=== PATIENT | male | born 1965 | race Caucasian/White ===

== ENCOUNTER 2019-02-14 18:04 | Outpatient (CLI) | payer OTHER ==
--- NOTE | 2019-02-16 04:52 | MRI Report ---
Reason: LOW BACK PAIN Procedure Date: 02/14/2019 Accession Number: [id number] / [id number] Procedure: MRI - Lumbar Spine W/O CPT Code: Final Report FULL RESULT: EXAM: MRI LUMBAR SPINE WITHOUT CONTRAST EXAM DATE: 02/14/2019 06:56 PM. CLINICAL HISTORY: LOW BACK PAIN. COMPARISON: MRI LUMBAR SPINE 06/03/2009 8:11 AM. TECHNIQUE: Multiplanar, multisequence T1-weighted and fluid-sensitive sequences of the lumbar spine from T12 to S1 without contrast. Other: None. FINDINGS: Spinal Canal: The conus terminates at L1. The conus and visualized distal spinal cord appear normal. Alignment: There is mild to moderate left convexity thoracolumbar scoliosis measuring approximately 16 degrees. Anderson of the curve is centered at L2. There is slight 2 mm degenerative retrolisthesis at L1-L2, L2-L3, and L3-L4. Bone Marrow: Five [id number] lumbar vertebral bodies are assumed. No gross fractures or bone lesions. No bone marrow replacement. There is mild Modic type II degenerative endplate change in the superior endplate of L1. Disk Levels/Facets: There is multilevel lumbar spondylosis and degenerative disk disease as detailed below. This has progressed at all levels when compared to the previous MRI on 06/03/2009. T12-L1: There is anterior endplate spurring and moderate disk narrowing and desiccation. There is posterior endplate spurring and disk bulging effacing the ventral thecal sac. No cord compression. There is mild bilateral facet hypertrophy. Central canal is mildly narrowed. There is mild to moderate bilateral foraminal stenosis. L1-L2: There is anterior spurring and moderate disk narrowing and desiccation more pronounced on the right. There is circumferential endplate spurring and generalized disk bulging which is asymmetric to the right. There is mild bilateral facet hypertrophy. Central canal is mildly narrowed. There is moderate right and mild left foraminal stenosis. L2-L3: There is anterior endplate spurring and moderate disk narrowing desiccation which is more pronounced on the right. There is circumferential endplates burring and generalized disk bulging effacing the ventral thecal sac. There is mild to moderate bilateral facet hypertrophy. Central canal is mildly narrowed. There is mild to moderate narrowing of bilateral subarticular recesses and moderate right foraminal stenosis. Left neural foramen is mildly narrowed. L3-L4: Moderate disk narrowing and desiccation. There is posterior endplate spurring and generalized disk bulging. There is bilateral facet hypertrophy. Central canal is mild to moderately narrowed. There is moderate to severe narrowing of the neural foramen and subarticular recesses bilaterally (slightly greater on the left). L4-L5: Moderate disk narrowing and desiccation. Posterior endplate spurring and disk bulging effaces the ventral thecal sac. There is bilateral facet hypertrophy. The central canal is mild to moderately narrowed. There is moderate to severe narrowing of the neural foramen and subarticular recesses bilaterally. L5-S1: There is mild disk narrowing and desiccation. A combination of endplate spurring, disk bulging, and bilateral facet hypertrophy causes severe left foraminal stenosis and moderate to severe right foraminal stenosis. No significant central canal stenosis. Musculature: Unremarkable. Other: The partially visualized retroperitoneum is unremarkable. IMPRESSION: 1. There is moderate multilevel lumbar spondylosis and degenerative disk disease/disk bulging as detailed above. This has progressed at all levels when compared to a prior lumbar spine MRI dated 06/03/2009. 2. Spondylosis and disk bulging results in [id number] central canal stenosis at L3-L4 and L4-L5. There is a mild degree of central canal stenosis at T12-L1, L1-L2, and L2-L3. 3. Spondylosis is associated with multilevel bilateral neural foramen stenosis as detailed above. -At L5-S1, there is severe left and [id number] right foraminal stenosis. -At L4-L5, there is moderate to severe stenosis of the neural foramen and subarticular recesses bilaterally. -At L3-L4, there is moderate to severe stenosis of the neural foramen and subarticular recesses bilaterally. This is greater on the left. -At L2-L3, there is moderate right foraminal stenosis. -L1-L2, there is moderate right foraminal stenosis. 4. There is mild to moderate left convexity lumbar scoliosis. Anderson of the curve is centered at L2. 5. No lumbar compression fracture. Comment: The following findings are so common in adults without low back pain that while we report their presence, they must be interpreted with caution and in the context of the clinical situation. (Reference Estephaniek et al, Spine 2001) Prevalence of findings in patients without low back pain: Disk degeneration (any evidence): 92% Disk desiccation/T2 signal loss: 83% Disk height loss: 56% Disk bulge: 64% Disk protrusion: 32% Annular tear/high intensity zone: 38% RADIA
== END 2019-02-14 18:05 | disposition home or self-care (01) ==
LOC: DI 18:04
PROVIDERS: ATTEND Family Medicine
DX: M51.36 Other intervertebral disc degeneration, lumbar region (principal); M48.061 Spinal stenosis, lumbar region without neurogenic claudication; M51.35 Other intervertebral disc degeneration, thoracolumbar region; M48.05 Spinal stenosis, thoracolumbar region; M47.816 Spondylosis without myelopathy or radiculopathy, lumbar region; M51.37 Other intervertebral disc degeneration, lumbosacral region; M47.817 Spondylosis without myelopathy or radiculopathy, lumbosacral region; M41.9 Scoliosis, unspecified
CPT/HCPCS: 72148

== ENCOUNTER 2021-11-20 07:18 | Outpatient (CLI) | payer OTHER ==
--- NOTE | 2021-11-20 11:22 | MRI Report ---
PROCEDURE: Cervical Spine W/O INDICATIONS: CERVICALGIA TECHNIQUE: Noncontrast sagittal T1 spin echo and T2 fast spin echo, sagittal STIR, foraminal oblique sagittal T2 fast spin echo, and axial gradient echo or T2 fast spin echo through the cervical spine. COMPARISON: None. FINDINGS: Image quality: Excellent. Alignment and Curvature: There is reversal of the normal cervical lordosis, with the apex at the C6- C7 level. No significant AP alignment abnormality can be seen. Bone Marrow: Marrow demonstrates normal overall signal. Spinal Cord: Visualized spinal cord has normal size and signal. No cerebellar tonsillar herniation. Paraspinous Soft Tissues: No paravertebral masses. Prevertebral soft tissues are normal in thicknes s. C2-C3: No significant abnormality is seen. C3-C4: The disc height is well-preserved. There is loss of disc signal seen. Mild disc osteophyte complex is seen. Mild to moderate facet hypertrophy is seen. There is at least moderate right-sided and moderate left-sided neuroforaminal narrowing. Minimal central canal narrowing is seen. C4-C5: The disc height is well-preserved. There is loss of disc signal seen. Mild to moderate disc b ulge is seen, which is eccentric to the right. There is moderate to prominent right-sided and mild le ft-sided facet hypertrophy. There is moderate to severe right-sided and at least moderate left-sided neuroforaminal narrowing. Mild central canal narrowing is seen. C5-C6: The disc height is well-preserved. There is loss of disc signal seen. Bridging anterior osteo phytes are seen. Mild disc bulge is seen. There is moderate right-sided and mild left-sided facet h ypertrophy. There is moderate right-sided and no significant left-sided neuroforaminal narrowing. Min imal central canal narrowing is seen. C6-C7: There is at least moderate loss of disc height seen. At least moderate disc bulge is seen, wh ich is eccentric to the right. There is a central/left disc osteophyte protrusion seen. Mild to moder ate facet hypertrophy is seen. Moderate to severe bilateral neuroforaminal narrowing can be seen, rig ht worse than left. Moderate to severe central canal narrowing is seen, with associated mass effect u nirav the ventral spinal cord, as on series 4 image 32. C7-T1: Mild to moderate loss of disc height and disc signal can be seen. At least moderate disc oste ophyte complex is seen. There were disc osteophyte protrusion seen involving both lateral recesses, w hich continues into the neural foramina. Moderate to severe bilateral neuroforaminal narrowing can be seen, left worse than right. Mild central canal narrowing is seen. IMPRESSION: Multiple levels of degenerative change are seen, which are overall worst at the C6-C7 level. Reviewed by: Jaxon Lopez MD on 11/20/2021 10:21 AM JOHNSON Approved by: Jaxon Lopez MD on 11/20/2021 10:21 AM JOHNSON Station ID: [id number]
== END 2021-11-20 07:19 | disposition home or self-care (01) ==
LOC: DI 07:18
PROVIDERS: ATTEND Student in an Organized Health Care Education/Training Program
DX: G56.20 Lesion of ulnar nerve, unspecified upper limb (principal); M47.812 Spondylosis without myelopathy or radiculopathy, cervical region; M50.323 Other cervical disc degeneration at C6-C7 level; M48.02 Spinal stenosis, cervical region; M50.23 Other cervical disc displacement, cervicothoracic region; M50.33 Other cervical disc degeneration, cervicothoracic region; M48.03 Spinal stenosis, cervicothoracic region